=== PATIENT | female | born 1955 | race Two or more races ===

== ENCOUNTER 2021-05-02 07:14 | Day surgery (SDC) | payer OTHER ==
[~2021-05-02 07:14] MED LIST: ADULT LOW DOSE81 M1 PO; TENORMIN50 M1 PO
== END 2021-05-02 18:35 | disposition home or self-care (01) ==
LOC: CIR.AMB 07:14
PROVIDERS: ATTEND Surgery
DX: D05.11 Intraductal carcinoma in situ of right breast (principal); Z20.822 Contact with and (suspected) exposure to COVID-19